=== PATIENT | female | born 1985 | race Caucasian/White ===

== ENCOUNTER 2020-07-04 19:33 | Emergency (ER) | payer OTHER ==
[~2020-07-04] VITALS: Ht 172.7 cm; Wt 91.4 kg
[2020-07-04 19:38] VITALS: TEMP 98.1
[2020-07-04 21:21] VITALS: BP 126/80; PULSE 79
== END 2020-07-04 21:22 | disposition home or self-care (01) ==
LOC: COL.ER 19:33
DX: G43.909 Migraine, unspecified, not intractable, without status migrainosus (principal); Z88.8 Allergy status to other drugs, medicaments and biological substances
CPT/HCPCS: J1200; J1885; J2405; J2765; J7030